=== PATIENT | female | born 1985 | race Caucasian/White ===

== ENCOUNTER 2019-01-15 20:31 | Emergency (ER) | payer BC ==
--- NOTE | 2019-01-15 21:27 | RADIOLOGY REPORT (SQ) ---
EXAM DESCRIPTION: XR ANKLE 3 OR MORE VIEWS COMPLETED DATE/TME: 01/15/2019 00:00 CLINICAL HISTORY: 33 years, Female, injured at trampoline park COMPARISON: None. NUMBER OF VIEWS: Three TECHNIQUE: Frontal, oblique, and lateral radiographs were obtained. LIMITATIONS: None. FINDINGS: Mild soft tissue swelling is noted about the lateral aspect of the ankle. Otherwise, visualized osseous structures appear normal without acute fracture or dislocation. IMPRESSION: Lateral soft tissue swelling without underlying acute osseous anomaly. copyright 2010 [employer]- All Rights Reserved
[2019-01-15] MEDS ORDERED: IBUPROFEN 800 MG TABLET PO ONE (23:47)
[2019-01-15] MEDS ORDERED: HYDROCODONE/ACETAMINOPHEN 5-325 MG (6 TAB/ER DISP) PO PRN (23:48)
[2019-01-15] MEDS ORDERED: HYDROCODONE/ACETAMINOPHEN 5-325 MG TABLET PO ONE (23:48)
--- NOTE | 2019-01-15 23:49 | ER Document Report ---
ED General - General Chief Complaint: Ankle Injury Stated Complaint: POSSIBLE ANKLE INJURY Time Seen by Provider: 01/15/19 23:40 Mode of Arrival: Ambulatory Information source: Patient TRAVEL OUTSIDE OF THE [place] IN LAST 30 DAYS: No - HPI Patient complains to provider of: Right ankle sprain Onset: Just prior to arrival Onset/Duration: Sudden, Constant Quality of pain: Sharp Severity: Severe Pain Level: 5 Associated symptoms: None Exacerbated by: Movement, Walking, Other - Palpation Relieved by: Denies Similar symptoms previously: No Recently seen / treated by doctor: No Notes: 33-year-old female coming in today with right foot and ankle injury. [place] [employer] [place] and was bouncing and came down on it and injured it when she landed. Complaining of pain on both sides of the ankle. Hurts to bear weight. - Related Data Allergies/Adverse Reactions: No Known Allergies Allergy (Verified 01/15/19 20:37) Past Medical History - General Information source: Patient - Social History Smoking Status: Current Every Day Smoker Family History: Reviewed & Not Pertinent Patient has suicidal ideation: No Patient has homicidal ideation: No Renal/ Medical History: Denies: Hx Peritoneal Dialysis Review of Systems - Review of Systems Notes: Constitutional: No fevers. No chills. EENT: No eye redness. No eye pain. No ear pain. No sore throat. Cardiovascular: No chest pain. No palpitations. Respiratory: No cough. No shortness of breath. No respiratory distress. Gastrointestinal: No abdominal pain. No nausea, vomiting, or diarrhea. Genitourinary: Atraumatic. No lesions. No pain. No discharge. Musculoskeletal: Positive right ankle swelling. Positive right ankle pain Skin: No rash or lesions. Lymphatic: No swollen lymph nodes. Neurologic: No headache. No syncope. Psychiatric: No suicidal or homicidal ideation. Physical Exam - Vital signs Vitals: Temp Pulse Resp BP Pulse Ox 97.9 F 65 22 H 128/70 H 100 01/15/19 20:50 01/15/19 20:50 01/15/19 20:50 01/15/19 20:50 01/15/19 20:50 - Notes Notes: General: Well-developed, well-nourished. In no acute distress. Non-toxic appearing. Cardiac: Well-perfused. Regular rate and rhythm. No murmurs, rubs, or gallops. Pulmonary: No respiratory distress. No cyanosis. Bilateral lung fiels are clear to auscultation. Abdominal: Non-distended. Non-rigid. Bowels sounds are present in all four quadrants. No guarding or rebound. HEENT: Head is atraumatic. Conjunctivae not reddened. No tearing. PERRL. EOMI. Orbits atraumatic. No periorbital swelling or erythema. Oropharynx is without erythema, swelling, or exudates. Neck: Supple. No adenopathy. No meningismus. Dermatologic: Warm with good turgor. No rash. Atraumatic. Chest: Atraumatic. No chest wall tenderness to palpation. Musculoskeletal: Moderate soft tissue swelling to the right foot and ankle. Some bruising present. Tenderness to palpation of medial and lateral malleoli. Good range of motion. Distal neurovascular exam is intact. Genitourinary: Examination deferred Neurologic: No gross neurologic deficits. Psychiatric: Normal mood. Course - Re-evaluation Re-evalutation: 01/15/19 23:51 X-rays are negative. Will discharge as ankle sprain. - Vital Signs Vital signs: Temp Pulse Resp BP Pulse Ox 97.9 F 65 22 H 128/70 H 100 01/15/19 20:50 01/15/19 20:50 01/15/19 20:50 01/15/19 20:50 01/15/19 20:50 Discharge - Discharge Clinical Impression: Ankle sprain Qualifiers: Encounter type: initial encounter Involved ligament of ankle: unspecified ligament Laterality: right Qualified Code(s): S93.401A - Sprain of unspecified ligament of right ankle, initial encounter Condition: Good Disposition: HOME, SELF-CARE Instructions: Danilo Wrap ([facility]), Use of Crutches ([facility]), Ice & Elevation ([facility]), Oral Narcotic Medication ([facility]), Ice Packs ([facility]), Sprained Ankle ([facility]) Additional Instructions: Keep foot elevated and iced. Do not bear weight on it. Use crutches when maneuvering. Referrals: BILLIE VANEGAS MD [ACTIVE STAFF] - Follow up as needed
[2019-01-16 00:11] VITALS: BP 108/65
== END 2019-01-16 00:16 | disposition home or self-care (01) ==
LOC: ER 20:31
DX: S93.401A Sprain of unspecified ligament of right ankle, initial encounter (principal); X58.XXXA Exposure to other specified factors, initial encounter; Y93.44 Activity, trampolining; Y92.89 Other specified places as the place of occurrence of the external cause; Y99.9 Unspecified external cause status; F17.200 Nicotine dependence, unspecified, uncomplicated
CPT/HCPCS: 99283